=== PATIENT | male | born 1985 | race African-American/Black ===

== ENCOUNTER 2017-12-20 01:26 | Emergency (ER) | payer MEDICAID, OTHER ==
[~2017-12-20] VITALS: Ht 193 cm; Wt 98.0 kg
[2017-12-20 01:40] VITALS: BP 133/92
== END 2017-12-20 06:20 | disposition left against medical advice (07) ==
LOC: ER 01:26
DX: S41.111A Laceration without foreign body of right upper arm, initial encounter (principal); X58.XXXA Exposure to other specified factors, initial encounter; Y93.89 Activity, other specified; Y92.89 Other specified places as the place of occurrence of the external cause; Y99.8 Other external cause status

== ENCOUNTER 2020-05-16 04:30 | Emergency (ER) | payer SELFPAY ==
[~2020-05-16] VITALS: Ht 193 cm; Wt 95.0 kg
[2020-05-16 04:36] VITALS: BP 140/90
== END 2020-05-16 08:13 | disposition left against medical advice (07) ==
LOC: ER 04:30
DX: R10.9 Unspecified abdominal pain (principal); Z53.21 Procedure and treatment not carried out due to patient leaving prior to being seen by health care provider